=== PATIENT | female | born 1935 | race Caucasian/White ===

== ENCOUNTER → 2017-05-25 | Outpatient (CLI) | payer OTHER | LOC: FIMAGING 10:10 | PROVIDERS: ATTEND Family Medicine | DX: Z12.31 Encounter for screening mammogram for malignant neoplasm of breast (principal); Z85.3 Personal history of malignant neoplasm of breast; Z90.11 Acquired absence of right breast and nipple | CPT/HCPCS: G0202-52 ==

== ENCOUNTER → 2017-08-03 | Outpatient (CLI) | payer OTHER | LOC: FIMAGING 08:43 | PROVIDERS: ATTEND Internal Medicine | DX: N26.1 Atrophy of kidney (terminal) (principal); I10 Essential (primary) hypertension ==

== ENCOUNTER → 2017-09-06 | Outpatient (CLI) | payer OTHER | LOC: FIMAGING 10:08 | PROVIDERS: ATTEND Family Medicine | DX: Z13.820 Encounter for screening for osteoporosis (principal); M81.0 Age-related osteoporosis without current pathological fracture ==

== ENCOUNTER → 2018-07-19 | Outpatient (CLI) | payer OTHER | LOC: FIMAGING 12:12 | PROVIDERS: ATTEND Family Medicine | DX: Z12.31 Encounter for screening mammogram for malignant neoplasm of breast (principal); Z85.3 Personal history of malignant neoplasm of breast ==

== ENCOUNTER → 2018-08-23 | Outpatient (CLI) | payer OTHER | LOC: FLAB 12:36 | PROVIDERS: ATTEND Family Medicine | DX: M51.35 Other intervertebral disc degeneration, thoracolumbar region (principal); M41.86 Other forms of scoliosis, lumbar region; M43.15 Spondylolisthesis, thoracolumbar region; M53.87 Other specified dorsopathies, lumbosacral region ==

== ENCOUNTER → 2018-09-22 | Outpatient (CLI) | payer OTHER | LOC: FIMAGING 14:10 | PROVIDERS: ATTEND Physical Medicine & Rehabilitation | DX: M51.36 Other intervertebral disc degeneration, lumbar region (principal); M51.34 Other intervertebral disc degeneration, thoracic region; M51.27 Other intervertebral disc displacement, lumbosacral region; M46.96 Unspecified inflammatory spondylopathy, lumbar region; M46.97 Unspecified inflammatory spondylopathy, lumbosacral region; M48.061 Spinal stenosis, lumbar region without neurogenic claudication; M48.07 Spinal stenosis, lumbosacral region ==

== ENCOUNTER 2019-02-19 07:15 | Inpatient (IN) | payer OTHER ==
--- NOTE | 2019-02-21 09:47 | GHP ---
[f rep st] PREOP HISTORY AND PHYSICAL DATE OF ADMISSION: 02/27/2019 PROBLEM: Left hip arthritis. HISTORY OF PRESENT ILLNESS: The patient is an 83-year-old woman with progressive pain in her left hi p over the past year. In the past 3 months it has been quite severe. She is having daily pain. Her pain is worse at night. She complains of 5 pain. She has tried a steroid Dosepak, which did not he lp. She has also tried meloxicam. 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 Her films show advanced degenerative a rthritis of the left hip. She will undergo a left total hip arthroplasty. PAST MEDICAL HISTORY: She has cervical radiculopathy and recently has been experiencing radicular pa in in her left shoulder and left upper extremity. She also has some problems with chronic low back p ain. She is treated for hypertension. 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 No history of heart disease, stents, DVT, hepatitis, or MRSA staph infection. She has sleep apnea a nd uses a CPAP machine. No history of hereditary bleeding disorders. CURRENT MEDICATIONS: Lasix 20 mg per day. Gabapentin 100 mg per day. Lisinopril 40 mg per day. Martinez toprazole 40 mg per day. Rosuvastatin 10 mg per day. Toviaz 4 mg per day. ALLERGIES: Drug allergies: Keflex caused itching. Metal allergy: None. Latex: She does have a l atex allergy. SOCIAL HISTORY: The patient is a . She is retired. She does not smoke cigarettes and occasion ally drinks wine. Her daughters will be available to assist her following discharge from the [facility] PHYSICAL EXAMINATION: VITAL SIGNS: Height 4 feet 10 inches. Weight 115 pounds. BMI 24. EYES: Th e conjunctivae and sclerae are clear. Pupils are round and reactive. MOUTH: Good oral hygiene. No loose teeth. CHEST: Clear. HEART: Regular rhythm. No murmurs. EXTREMITIES: Pertinent findings limited to her left hip. She has full hip extension and 90 degrees of flexion. External rotation 2 0 degrees. Internal rotation zero degrees. IMPRESSION ON ADMISSION: 1. Bilateral hip severe degenerative arthritis. The left hip is much more symptomatic than the righ t. She is prepared for a left total hip arthroplasty. 2. Status post bilateral total knee arthroplasty. 3. Treatment for hypertension. 4. One functioning kidney. 5. Cervical radiculopathy to the left shoulder and left upper extremity. PLAN: She will undergo a left total hip arthroplasty. The surgery has been described to her and her daughters including the risks, complications, expectations, and recovery time. I have discussed wit h her the risk of dislocation, leg length inequality, infection, and sciatic nerve injury. She prefe rs to avoid nonsteroidal anti-inflammatory medications because of her 1 functioning kidney. She is o erwin to use the aspirin and Celebrex postoperatively. I will use vancomycin for her preop antibiotics rather than Ancef. All her questions have been answered and she consents to surgery. /[id number]/MODL
--- NOTE | 2019-02-26 19:39 | POSTANESTH ---
Post Anesthetic Evaluation Cardiovascular Status: Normal, Stable Respiratory Status: Normal, Stable Level of Consciousness/Mental Status: Can Participate in Eval, Alert and Oriented Pain Control: Adequate, Prn Tx Ordered Nausea/Vomiting Control: Adequate, Prn Tx Ordered Complications Possibly Related to Anesthesia: None Noted
--- NOTE | 2019-02-26 19:42 | PDANEPAE ---
ANE History of Present Illness 83 yo female with OA for L ANAND. 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 - Pulmonary History Hx COPD: No Hx Asthma/Reactive Airway Disease: No Hx Recent Upper Respiratory Infection: No Hx Oxygen in Use at Home: No Hx Sleep Apnea: Yes Sleep Apnea Screening Result - Last Documented: Positive Pulmonary History Comment: gómez positive- instructed pt to bring cpap - Neurologic History Hx Cerebrovascular Accident: No Hx Seizures: No Hx Dementia: No - Endocrine History Hx Diabetes: No Hypothyroid: No Hyperthyroid: No Obesity: no - Renal History Hx Renal Disorders: Yes Renal History Comment: only one functioning kidney - Liver History Hx Hepatic Disorders: No - Neurological & Psychiatric Hx Hx Neurological and Psychiatric Disorders: No - Cancer History Hx Cancer: Yes Cancer History Comment: R BREAST CA in 1988. hx of tamoxifan x 5 yrs - Congenital Disorder History Hx Congenital Disorders: No Congenital History Comment: BIRTHMARK RED ON L LEG and back - GI History Hx Gastrointestinal Disorders: Yes Gastrointestinal History Comment: HIATAL HERNIA, TAKES PROTONIX - Other Health History Other Health History: juliette on left leg up on to back, red in color. pinched nerve with left arm pain at times- doing PT and had MRI scheduled - Chronic Pain History Chronic Pain: Yes (left hip, left arm) - Surgical History Prior Surgeries: right TKA with [place] 08/06/14. L TKA 04/25. R BREAST MASTECTOMY . LANDON . CYST REM R FOOT ANE Review of Systems Review of Systems: - Exercise capacity METS (RN): 4 METS - Systems Constitutional: Reports: no symptoms Cardiac: Reports: no symptoms Respiratory: Reports: no symptoms ANE Patient History - Allergies Allergies/Adverse Reactions: azithromycin [From Zithromax] Allergy (Verified 02/27/19 06:21) Rash cephalexin monohydrate [From Keflex] Allergy (Verified 02/27/19 06:21) Hives codeine Allergy (Verified 02/27/19 06:21) Unknown latex Allergy (Verified 02/27/19 06:21) Rash NSAIDS (Non-Steroidal Anti-Inflamma Allergy (Verified 02/27/19 06:21) AVOIDS RT KIDNEY ATROPHY KIDNEY - Home Medications Home Medications: RX: Furosemide [Lasix 20 MG (*)] 20 mg PO DAILY 04/04/13 [Last Taken 02/26/19] RX: Lisinopril [Zestril 40 mg (*)] 40 mg PO DAILY 04/04/13 [Last Taken 02/26/19] RX: Nebivolol HCl [Bystolic 10 mg] 15 mg PO HS 04/04/13 [Last Taken 02/27/19 05: 25] RX: Pantoprazole Sodium [Protonix 40mg (*)] 40 mg PO DAILY 04/04/13 [Last Taken 02/27/19 05:25] RX: Rosuvastatin Calcium [Crestor] 10 mg PO DAILY@18 04/04/13 [Last Taken 22:00] RX: amLODIPine BESYLATE [Norvasc 5 mg (*)] 5 mg PO DAILY 04/04/13 [Last Taken 22:00] Acetaminophen [Tylenol 325mg (*)] 325 mg PO Q6 PRN 02/14/19 [Last Taken 22:00] Fesoterodine Fumarate [Toviaz (*)] 8 mg PO DAILY 02/14/19 [Last Taken 02/26/19 16:30] Gabapentin [Neurontin 300 MG (*)] 300 mg PO HS 02/14/19 [Last Taken 02/26/19 23: 35] celeCOXIB [Celebrex (*)] 200 mg PO DAILY 02/14/19 [Last Taken 02/26/19 20:00] - Anes Hx Anes Hx: no prior problems Hx Anesthesia Complications (with details): Difficult lumbar spinal placement in 2013 due to lumbar curvature, easy at L2/3 - Smoking Hx Smoking Status: Never smoked - Family Anes Hx Family Anes Hx: neg - N/A Family Hx Anesthesia Complications: NONE ANE Labs/Vital Signs - Vital Signs Vital Signs: reviewed preoperatively; see RN documention for details Height: 147.32 cm Weight: 53.07 kg ANE Physical Exam - Airway Neck exam: decreased ROM ('s hump, unable to extend head) Mallampati Score: Class 2 - Pulmonary Pulmonary: clear to auscultation - Cardiovascular Cardiovascular: regular rate and rhythym - ASA Status ASA Status: III ANE Anesthesia Plan Anesthesia Plan: spinal Total IV Anesthesia: Yes
[2019-02-27] MEDS ORDERED: VANCOMYCIN 750 MG in D5W 150 ML IV ONE (06:00)
[2019-02-27] MEDS ORDERED: ROPIVACAINE 0.2% 80 MG, EPINEPHrine 0.2 MG, KETOROLAC TROMETHAMINE 30 MG in SYRINGE 0 ML IU ONE (06:00)
[2019-02-27] MEDS ORDERED: TRANEXAMIC ACID 1,000 MG in NS 100 ML IV ONE (06:00)
[2019-02-27] MEDS ORDERED: TRANEXAMIC ACID 3,000 MG in NS (SYRINGE) 50 ML IRR ONE (06:00)
[2019-02-27] MEDS ORDERED: POVIDONE-IODINE 20 ML in SODIUM CL IRRIG SOLUTION 500 ML IRR ONE (06:00)
[2019-02-27] MEDS ORDERED: VANCOMYCIN PHARMACY TO DOSE MISC ONE (06:00)
[2019-02-27] MEDS ORDERED: ACETAMINOPHEN 325 MG TAB PO ONE (06:09)
[2019-02-27] MEDS ORDERED: GABAPENTIN 300 MG CAP PO ONE (06:09)
[2019-02-27] MEDS ORDERED: ONDANSETRON 4 MG/2 ML VIAL IVP ONE (06:09)
[2019-02-27] MEDS ORDERED: FAMOTIDINE 20 MG TAB PO ONE (06:09)
[2019-02-27] MEDS ORDERED: DEXAMETHASONE 4 MG/ML VIAL IVP ONE (06:09)
[2019-02-27] MEDS ORDERED: LR 1,000 ML IV ONE (06:15)
[2019-02-27] MEDS ORDERED: LIDOCAINE 1% 2 ML INJ ID PRN (06:15)
[2019-02-27] MEDS ORDERED: TRANEXAMIC ACID 3,000 MG/50 ML BAG IRR ONE (06:37)
[2019-02-27] MEDS ORDERED: ceFAZolin 1 GM/5 ML SYR ONE (06:38)
--- NOTE | 2019-02-27 06:49 | PDHPUP ---
History & Physical Update H&P update statement: This history and physical update is based on an assessment of the patient which was completed after admission or registration (within 24 hours), but prior to the surgery/procedure. H&P update: H&P reviewed & patient examined
[2019-02-27] MEDS ORDERED: MIDAZOLAM 2 MG/2 ML VIAL ONE (06:53)
[2019-02-27] MEDS ORDERED: MIDAZOLAM 2 MG/2 ML VIAL IVP ONE (06:56)
[2019-02-27] MEDS ORDERED: fentaNYL 100 MCG/2 ML INJ ONE (07:01)
[2019-02-27] MEDS ORDERED: LIDOCAINE 2% 5 ML SDV ONE (07:01)
[2019-02-27] MEDS ORDERED: BUPIVACAINE/DEXTROSE 7.5MG/ML 2 ML SPINAL AMP SP ONE (07:01)
[2019-02-27] MEDS ORDERED: PROPOFOL/EMULSION 500 MG/50 ML BOTTLE IV ONE (07:02)
[2019-02-27] MEDS ORDERED: DEXAMETHASONE 4 MG/ML VIAL ONE ×2 (07:02)
[2019-02-27] MEDS ORDERED: PHENYLEPHRINE HCL 100 MCG/ML SYR ONE (07:45)
[2019-02-27] MEDS ORDERED: VASOPRESSIN 20 UNIT/ML VIAL ONE (08:06)
[2019-02-27] MEDS ORDERED: PROMETHAZINE HCL 25 MG/ML INJ IVP PRN ×2 (08:59→09:22)
[2019-02-27] MEDS ORDERED: LR 250 ML IV PRN (08:59)
[2019-02-27] MEDS ORDERED: ALBUTEROL 3 ML DEYVIAL IH PRN (08:59)
[2019-02-27] MEDS ORDERED: fentaNYL 100 MCG/2 ML INJ IVP PRN (08:59)
[2019-02-27] MEDS ORDERED: DIAZEPAM 5 MG/ML 1 ML SYR IVP PRN (08:59)
[2019-02-27] MEDS ORDERED: ENALAPRILAT DIHYDRATE 1.25 MG/ML VIAL IVP PRN (08:59)
[2019-02-27] MEDS ORDERED: oxyCODONE IR 5 MG TAB PO PRN ×2 (08:59→09:22)
[2019-02-27] MEDS ORDERED: NALOXONE HCL 0.4 MG/ML INJ IVP PRN (08:59)
--- NOTE | 2019-02-27 09:20 | POSTOPPROG ---
Post Op Note Date of Operation: 02/27/19 Surgeon: Thom Moore Watcher Automat Long Goods: Julio Anesthesiologist: Ghazala Anesthesia: IV Sedation, Spinal Post-op Diagnosis: Left hip severe degenerative arthritis. Procedure: Left total hip arthroplasty Inf/Abcess present in the surg proc area at time of surgery?: No EBL: 100-500
[2019-02-27] MEDS ORDERED: ONDANSETRON DISINTEGRATING 4 MG TAB PO PRN (09:22)
[2019-02-27] MEDS ORDERED: LACTULOSE 20 GM/30 ML UDCUP PO PRN (09:22)
[2019-02-27] MEDS ORDERED: DIPHENOXYLATE/ATROPINE LOMOTIL 1 TAB PO PRN (09:22)
[2019-02-27] MEDS ORDERED: ONDANSETRON 4 MG/2 ML VIAL IVP PRN (09:22)
[2019-02-27] MEDS ORDERED: traMADol 50 MG TAB PO PRN (09:22)
[2019-02-27] MEDS ORDERED: BISACODYL 10 MG SUPP PR PRN (09:22)
[2019-02-27] MEDS ORDERED: METOCLOPRAMIDE 10 MG/2 ML VIAL IVP PRN (09:22)
[2019-02-27] MEDS ORDERED: POLYETHYLENE GLYCOL 3350 17 GM PKT PO PRN (09:22)
[2019-02-27] MEDS ORDERED: MAGNESIUM HYDROXIDE 30 ML UDCUP PO PRN (09:22)
[2019-02-27] MEDS ORDERED: PROMETHAZINE HCL 25 MG SUPPR PR PRN (09:22)
[2019-02-27] MEDS ORDERED: NS 500 ML IV PRN (09:22)
[2019-02-27] MEDS ORDERED: diphenhydrAMINE 25 MG CAP PO PRN (09:22)
[2019-02-27] MEDS ORDERED: CYCLOBENZAPRINE 10 MG TAB PO PRN (09:22)
[2019-02-27] MEDS ORDERED: TEMAZEPAM 15 MG CAP PO PRN (09:22)
[2019-02-27] MEDS ORDERED: LR 1,000 ML IV SCH (09:30)
--- NOTE | 2019-02-27 10:57 | PDMN ---
Medical Necessity Medical necessity: [facility] S560 Hip Arthroplasty, A-2 days: 83 yo s/p L ANAND, [facility] IP only
[2019-02-27] MEDS: ACETAMINOPHEN 325 MG TAB PO SCH ×2 (15:14→22:00)
--- NOTE | 2019-02-27 15:46 | SOAPPROG ---
SOAP Progress Note Assessment/Plan: Assessment: s/p left ANAND - procedure earlier this morning Doing well, no significant pain at this time Plan: Begin discharge planning - possibly tomorrow. She will be going home and will have support from her daughters Continue DVT ppx - BLANCA hose, SCDs, aspirin 325 mg once daily Continue pain management - tolerating oral meds Continue PT efforts - follow posterior ANAND precautions Changed left thigh high BLANCA hose to knee high BLANCA hose secondary to birthmark/ hemangioma and possible skin irritation Subjective: Patient states she is feeling very good at this time, there is no significant pain. She is considering going home tomorrow but would like to see how she feels first. She reports having the support of her daughters when she goes home. Patient denies shortness of breath, chest pain, fever, chills, nausea, vomiting. Objective: Vital Signs Temp Pulse Resp BP Pulse Ox 36.4 C 75 16 123/64 H 91 L 02/27/19 15:09 02/27/19 15:09 02/27/19 15:02/27/19 15:02/27/19 15:02/26/19 02/27/19 02/28/19 05:59 05:59 05:59 Intake Total 900 Output Total 700 Balance 200 Patient resting comfortably in bed, no acute distress. LLE: Surgical wound dressings are clean, dry and intact. Lower leg compartments are soft and nontender. She can actively DF and PF her left foot and great toe. Grossly NVI distally. ICD10 Worksheet Patient Problems: Problems Problem Status Onset Osteoarthritis of left hip Acute Primary osteoarthritis of right knee Acute
[2019-02-27] MEDS ORDERED: ROSUVASTATIN CALCIUM 10 MG TAB PO SCH (18:00)
[2019-02-27] MEDS ORDERED: GABAPENTIN 300 MG CAP PO SCH (21:00)
[2019-02-27] MEDS ORDERED: FAMOTIDINE 20 MG TAB PO SCH (21:00)
[2019-02-27] MEDS ORDERED: NEBIVOLOL HCL 5 MG TAB PO SCH (21:00)
[2019-02-27] MEDS: SENNOSIDES/DOCUSATE SODIUM TAB PO SCH (22:00)
[2019-02-27] MEDS: ASPIRIN 325 MG TAB PO SCH (22:04)
[2019-02-28] MEDS: ACETAMINOPHEN 325 MG TAB PO SCH ×3 (05:00→14:31)
--- NOTE | 2019-02-28 07:36 | SOAPPROG ---
SOAP Progress Note Assessment/Plan: Assessment: Afebrile. Awake and alert. Very little pain. She has been up and walking in the murphy. Her dressing is dry. Minimal swelling. Postop H&H is good. Sciatic nerve intact. Postop films look excellent. Plan: Continue physical therapy today. Discharge later today. Home physical therapy. 02/28/19 07:35 Objective: Vital Signs Temp Pulse Resp BP Pulse Ox 36.6 C 66 16 130/88 H 92 02/28/19 07:06 02/28/19 07:06 02/28/19 07:06 02/28/19 07:06 02/28/19 07:06 Laboratory Results 02/28/19 05:04 02/27/19 02/28/19 03/01/19 05:59 05:59 05:59 Intake Total 1100 Output Total 800 Balance 300 ICD10 Worksheet Patient Problems: Problems Problem Status Onset Osteoarthritis of left hip Acute Primary osteoarthritis of right knee Acute
--- NOTE | 2019-02-28 07:52 | GDS ---
[f rep st] DISCHARGE SUMMARY ADMISSION DIAGNOSIS: Left hip severe degenerative arthritis. DISCHARGE DIAGNOSIS: Left hip severe degenerative arthritis. OPERATION PERFORMED: 02/27/2019, a left total hip arthroplasty. POSTOPERATIVE COMPLICATIONS: None. CONDITION ON DISCHARGE: Improved. DESCRIPTION OF HOSPITAL COURSE: The patient was admitted to the hospital on the morning of surgery. Her admission CBC, electrolytes, BUN, and creatinine were all normal. The same day, under a combina tion of Marcaine, spinal, and IV sedation, she underwent a left total hip arthroplasty. Postoperativ mirela, she was treated with multimodal DVT prophylaxis, including aspirin. On the first postoperative day, her hemoglobin and hematocrit were 10.6 and 32.5. She was seen by Physical Therapy and made goo d progress with ambulation and stairs. By the time of discharge, she was afebrile, her dressing was dry, and she was independent walking with a walker. DISPOSITION: The patient is discharged to her home. Her daughters are going to help care for her. She will have home physical therapy. She may progress to full weightbearing on the left as tolerated . Use an abduction pillow in bed for 3 weeks. Continue aspirin 325 mg p.o. daily for 21 days. She has prescriptions for oxycodone, tramadol and Celebrex for pain control. I will see her back in the office on March 22, 2019. If there are any problems, she is to call me at the office. /[id number]/MODL
[2019-02-28] MEDS ORDERED: FERROUS SULFATE 325 MG TAB PO SCH (08:00)
--- NOTE | 2019-02-28 08:09 | PDIAF ---
- Diagnosis Diagnosis: L hip OA Code Status: Full Code - Medication Management Discharge Medications: electronically signed and located in the Home Medication List. PICC Care - Routine: N/A - Orders Services needed: Home Care, Physical Therapy Home Care Face to Face: I certify that this patient was under my care and that I had the required [id number] encounter meeting the encounter requirements on the discharge day. My findings support the fact that the patient is homebound as defined in Home Care Face to Face Continued: CMS Chapter 7 Medicare Benefits Manual 30.1.1 , The condition of the patient is such that there exists a normal inability to leave home and consequently, leaving home would require a considerable and taxing effort. Isolation Type: None Diet Recommendation: no restrictions on diet Diet Texture: Regular Texture Diet Spencer Stockings Discontinue Date: 1 week Wound Care Instructions: keep clean and dry. You may shower Activity/Weight Bearing Restrictions: as tolerated - Follow Up Care Current Providers and Referrals: Baudilio Michaud MD [Primary Care Provider] - Jamil Calero PAC [Physician Bus Starter] - Thom Moore MD [Medical Doctor] - 03/22/19
[2019-02-28] MEDS ORDERED: FESOTERODINE FUMARATE 8 MG TAB.ER PO SCH (09:00)
[2019-02-28] MEDS ORDERED: PANTOPRAZOLE SODIUM 40 MG TAB PO SCH (09:00)
[2019-02-28] MEDS ORDERED: LISINOPRIL 40 MG TAB PO SCH (09:00)
[2019-02-28] MEDS ORDERED: FUROSEMIDE 20 MG TAB PO SCH (09:00)
[2019-02-28] MEDS: SENNOSIDES/DOCUSATE SODIUM TAB PO SCH (09:21)
[2019-02-28] MEDS: amLODIPine BESYLATE 5 MG TAB PO SCH ×2 (09:23→10:24)
[2019-02-28] MEDS: ASPIRIN 325 MG TAB PO SCH (09:27)
--- NOTE | 2019-02-28 09:27 | PDIAF ---
- Diagnosis Diagnosis: L hip OA Code Status: Full Code - Medication Management Discharge Medications: electronically signed and located in the Home Medication List. PICC Care - Routine: N/A - Orders Services needed: Home Care, Physical Therapy, Occupational Therapy Home Care Face to Face: I certify that this patient was under my care and that I had the required [id number] encounter meeting the encounter requirements on the discharge day. My findings support the fact that the patient is homebound as defined in Home Care Face to Face Continued: CMS Chapter 7 Medicare Benefits Manual 30.1.1 , The condition of the patient is such that there exists a normal inability to leave home and consequently, leaving home would require a considerable and taxing effort. Isolation Type: None Diet Recommendation: no restrictions on diet Diet Texture: Regular Texture Diet Spencer Stockings Discontinue Date: 1 week Wound Care Instructions: keep clean and dry. You may shower Activity/Weight Bearing Restrictions: as tolerated - Follow Up Care Current Providers and Referrals: Baudilio Michaud MD [Primary Care Provider] - Thom Moore MD [Medical Doctor] - 03/22/19 Jamil Calero PAC [Physician Recorder Of Deeds] -
--- NOTE | 2019-02-28 10:03 | ASMTLACE ---
LACE Length of stay for Answers: 1 day current admission Acuity / Level of Answers: Yes Care: Did the patient have an inpatient admission? Comorbidities - select Answers: Opioid dependence all that apply / Chronic pain Other Notes: HTN # of Emergency department Answers: 0 visits in the last 6 months Score: 9 Date Signed: 02/28/2019 10:03 AM Electronically Signed By:Kristi Bustamante RN
--- NOTE | 2019-02-28 10:05 | ASMTDCNOTE ---
Case Management Discharge Discharge Order Complete? Answers: Yes Patient to Obtain Answers: Independently Medications Transportation Arranged Answers: Family/Friends Faxed Final Orders Answers: Yes Family Notified Answers: Yes Discharge Comments Notes: Patient discharged home. Her daughters will stay with her the next two nights. PT[facility]OT with [facility]. I also provided a list of private duty caregivers. Date Signed: 02/28/2019 10:04 AM Electronically Signed By:Kristi Bustamante RN
[2019-02-28 11:39] VITALS: BP 163/82
== END 2019-02-28 14:32 | disposition home health service (06) | DRG 470 ==
LOC: F3N 02-27 05:57
PROVIDERS: ADMIT Orthopaedic Surgery; ATTEND Orthopaedic Surgery
PROC: 0SRB04A Replacement of Left Hip Joint with Ceramic on Polyethylene Synthetic Substitute, Uncemented, Open Approach (ICD-10-PCS; principal; 2019-02-27 07:15)
DX: M16.12 Unilateral primary osteoarthritis, left hip (principal); I10 Essential (primary) hypertension; G47.33 Obstructive sleep apnea (adult) (pediatric); K44.9 Diaphragmatic hernia without obstruction or gangrene; G89.29 Other chronic pain; M54.12 Radiculopathy, cervical region; Z85.3 Personal history of malignant neoplasm of breast; Z96.653 Presence of artificial knee joint, bilateral
CPT/HCPCS: 97110-GP; 97116-GP; 97161-GP; 97165-GO; 97530-GP; C1713; J0171; J1100; J1885; J2250; J2370; J2405; J2704; J2795; J3010; J3360; J3370

== ENCOUNTER → 2019-02-19 | Outpatient (CLI) | payer OTHER | LOC: EMCIMAGING 10:44 ==